=== PATIENT | female | born 1940 | race Caucasian/White ===

== ENCOUNTER 2018-12-09 15:10 | Outpatient (CLI) | payer MEDICARE, OTHER ==
[~2018-12-09] VITALS: Ht 165.1 cm; Wt 81.0 kg
[2018-12-09] MEDS ORDERED: SYNTHROID0.137 MG PO (15:16)
[2018-12-09] MEDS ORDERED: ZESTRIL 5MG5 MG PO (15:17)
[2018-12-09 15:25] VITALS: BP 141/67; PULSE 87; TEMP 98
== END 2018-12-09 15:27 | disposition home or self-care (01) ==
LOC: EUO 15:10
DX: M81.0 Age-related osteoporosis without current pathological fracture (principal)
CPT/HCPCS: J0897

== ENCOUNTER → 2019-06-12 | Outpatient (CLI) | payer MEDICARE, OTHER ==
[~2019-06-12] MED LIST: SYNTHROID0.137 MG PO; ZESTRIL 5MG5 MG PO
== END ==
LOC: COL.RAD 12:36
DX: K76.0 Fatty (change of) liver, not elsewhere classified (principal)